=== PATIENT | female | born 1995 | race Caucasian/White ===

== ENCOUNTER 2018-03-12 09:30 | Outpatient (REF) | payer OTHER, SELFPAY ==
[2018-03-12 19:00] LABS: Abs Immature Grans 0.19 k/cumm (0.0-0.09); Absolute Basophil Count 0.06 k/cumm (0.0-0.2); Basophils % 0.5; Eosinophils % 1.7; HCT 43.3 % (36.0-46.0); HGB 14.4 g/dL (12.0-15.5); Immature Grans % 1.5; Lymphocytes % 16.5; Mean Corp. HGB Concentration 33.3 g/dL (32.0-36.0); Mean Corpuscular Hemoglobin 30.1 pg (27.0-33.0); Mean Corpuscular Volume 90.6 fL (80-95); Mean Platelet Volume 10.5 fL (8.0-11.0); Monocytes % 8.3; Neutrophils % 71.5; Platelet Count 315 x1000/uL (130-400); RBC 4.78 m/cumm (4.00-5.20); RBC Distribution Width 13.1 % (11.7-14.6)
[2018-03-12 19:05] LABS: Absolute Eosinophil Count 0.22 k/cumm (0.0-0.7); Absolute Monocyte Count 1.05 k/cumm (0.11-0.7); Absolute Neutrophil Count 9.08 k/cumm (1.2-6.7)
[2018-03-12 19:25] LABS: ALT 38 U/L (12-78); AST 28 U/L (15-37); Albumin 3.8 g/dL (3.4-5.0); Alkaline Phosphatase 97 U/L (46-116); Anion Gap 9.7 mmol/L (3-11); BUN 17 mg/dL (7-18); Bilirubin, Total 0.5 mg/dL (0.2-1.0); CO2 24.3 mmol/L (21.0-32.0); CREATININE 0.67 mg/dL (0.55-1.02); Chloride 104 mmol/L (98-107); Cholesterol 126 mg/dL (50-200); Glucose 85 mg/dL (70-100); HDL Cholesterol 43 mg/dL (40-60); LDL CHOLESTEROL 71 mg/dL (<100); Potassium 4.5 mmol/L (3.5-5.1); Sodium 138 mmol/L (136-145); Total Protein 7.1 g/dL (6.4-8.2); Triglyceride 54 mg/dL (30-150)
[2018-03-12 20:17] LABS: Hemoglobin A1C 5.6 % (4.5-6.2)
== END 2018-03-12 09:50 ==
LOC: NCHCN 09:30
PROVIDERS: PCP Pediatrics; Visit Provider Physician Assistant Medical
DX: D72.829 Elevated white blood cell count, unspecified (principal); Z00.00 Encounter for general adult medical examination without abnormal findings
CPT/HCPCS: 80053; 80061; 83721; 83036; 85025

== ENCOUNTER 2018-06-09 21:26 | Outpatient (REF) | payer OTHER, SELFPAY | END 2018-06-09 21:46 | LOC: NCHCN 21:26 | PROVIDERS: PCP Pediatrics; Visit Provider Physician Assistant Medical | DX: R39.89 Other symptoms and signs involving the genitourinary system (principal) | CPT/HCPCS: 87086 ==

== ENCOUNTER 2018-10-13 15:40 | Outpatient (REF) | payer OTHER, SELFPAY | END 2018-10-13 16:00 | LOC: NCHCN 15:40 | PROVIDERS: PCP Nurse Practitioner Family; Visit Provider Nurse Practitioner Family | DX: J02.9 Acute pharyngitis, unspecified (principal) | CPT/HCPCS: 87070 ==

== ENCOUNTER 2020-03-02 20:22 | Outpatient (REF) | payer OTHER, SELFPAY ==
[2020-03-02 20:28] LABS: Anion Gap 8.2 mmol/L (3-11); BUN 14 mg/dL (7-18); CO2 26.8 mmol/L (21.0-32.0); CREATININE 0.82 mg/dL (0.55-1.02); Calcium 9.6 mg/dL (8.5-10.1); Chloride 102 mmol/L (98-107); Glucose 80 mg/dL (74-106); Potassium 4.6 mmol/L (3.5-5.1); Sodium 137 mmol/L (136-145)
== END 2020-03-02 20:42 ==
LOC: NCHCN 20:22
PROVIDERS: PCP Nurse Practitioner Family; Visit Provider Physician Assistant Medical
DX: R10.9 Unspecified abdominal pain (principal); E28.2 Polycystic ovarian syndrome
CPT/HCPCS: 80048; 87086

== ENCOUNTER 2020-08-31 12:51 | Outpatient (REF) | payer OTHER, SELFPAY ==
[2020-08-31 19:39] LABS: Abs Immature Grans 0.13 10^3/uL (0.0-0.06); Absolute Basophil Count 0.09 10^3/uL (0.0-0.2); Absolute Eosinophil Count 0.27 10^3/uL (0.0-0.7); Absolute Lymphocyte Count 2.87 10^3/uL (1.2-3.4); Absolute Monocyte Count 0.68 10^3/uL (0.1-0.8); Absolute Neutrophil Count 6.37 10^3/uL (1.2-6.7); Basophils % 0.9; Eosinophils % 2.6; HCT 46.1 % (36.0-46.0); HGB 14.5 g/dL (11.2-15.7); Immature Grans % 1.2; Lymphocytes % 27.6; MCH 29.1 pg (27.0-33.0); MCHC 31.5 % (32.0-36.0); MCV 92.6 fL (80-95); MPV 10.4 fL (8.0-11.0); Monocytes % 6.5; Neutrophils % 61.2; Nucleated RBC 0 %; Platelet Count 354 10^3/uL (130-400); RBC 4.98 10^6/uL (3.93-5.22); RDW 12.4 % (11.7-14.6); RDW-SD 42.3 fL; WBC 10.41 10^3/uL (4.4-10.8)
[2020-08-31 20:13] LABS: Hemoglobin A1C 5.3 % (<5.7)
[2020-08-31 20:24] LABS: ALT 102 U/L (14-59); AST 48 U/L (15-37); Alkaline Phosphatase 76 U/L (46-116); Anion Gap 11.5 mmol/L (3-11); BUN 8 mg/dL (7-18); Bilirubin, Total 0.4 mg/dL (0.2-1.0); CO2 23.5 mmol/L (21.0-32.0); CREATININE 0.7 mg/dL (0.55-1.02); Chloride 105 mmol/L (98-107); Glucose 86 mg/dL (74-106); Potassium 4.4 mmol/L (3.5-5.1); Sodium 140 mmol/L (136-145); TSH (W/Ref FT4) 1.23 uIU/mL (0.36-3.74); Total Protein 7.4 g/dL (6.4-8.2)
[2020-09-03 10:53] LABS: Lyme Ab w Rflx to Lyme Confirm Negative (Negative)
[2020-09-04 11:29] LABS: Hepatitis A Antibody IgM Negative (Negative); Hepatitis B Core Antibody Negative (Negative); Hepatitis B surface Ag Negative (Negative); Hepatitis C Ab w Rflx HCV PCR Negative (Negative)
[2020-09-04 12:42] LABS: Anaplasma phagocytophilum Negative (Negative); B. miyamotoi PCR Negative (Negative); Babesia divergens/MO-1 Negative (Negative); Babesia duncani Negative (Negative); Babesia microti Negative (Negative); Ehrlichia chaffeensis Negative (Negative); Ehrlichia ewingii/canis Negative (Negative); Ehrlichia muris eauclairensis Negative (Negative)
== END 2020-08-31 12:52 | disposition home or self-care (01) ==
LOC: NCHCN 12:51
PROVIDERS: PCP Nurse Practitioner Family; Visit Provider Physician Assistant Medical
DX: R22.1 Localized swelling, mass and lump, neck (principal); R53.83 Other fatigue; M79.605 Pain in left leg; R79.89 Other specified abnormal findings of blood chemistry
CPT/HCPCS: 80053; 86704; 86709; 86803; 87340; 87798; 83036; 84443; 85025; 86618

== ENCOUNTER → 2020-09-20 02:36 | Outpatient (CLI) | payer OTHER, SELFPAY ==
--- NOTE | 2020-09-20 | DI.MRI_ITS ---
Exam(s) MR ABDOMEN WO/W EXAM: MR ABDOMEN WO/W CLINICAL HISTORY: ELEVATED LFT'S,R79.89,F/U RT HEPATIC LESION ON MRI 05/11/15 TECHNIQUE: Multiplanar multisequence MRA of the Abdomen was performed. CONTRAST MATERIAL: IV Contrast: mL of Dotarem contrast administered. COMPARISON: CT RENAL COLIC WO CONTRAST from 11/11/2013 CT RENAL COLIC WO CONTRAST from 11/11/2013 CT RENAL COLIC WO CONTRAST from 11/11/2013 US RENAL ULTRASOUND(P) {[id number]} from 12/07/2013 US RENAL ULTRASOUND(P) {[id number]} from 12/07/2013 FINDINGS: Exam is limited by patient motion. Liver: Circumscribed mass posterosuperior right lobe of the liver is slightly hypo intense related t o the remaining liver. It measures 3 cm in greatest dimension, unchanged from the previous exam. No new liver lesions. Liver is enlarged at 19 cm in length. There is diffuse hepatic steatosis. Pancreas: Unremarkable. Gallbladderand Bile Ducts: Unremarkable. Adrenals: Unremarkable. Kidneys: Unremarkable. Spleen: Unremarkable. Aorta: Unremarkable. Soft Tissues: Unremarkable. Bone: Unremarkable. Lymph Nodes: Unremarkable. IMPRESSION: Stable circumscribed mass in the right lobe of the liver. No new abnormalities. Enlarged fatty liver. DATA REPOSITORY:
[2020-09-20] MEDS: Gadoterate meglumine 20 ML VIAL IVP (14:30)
== END ==
PROVIDERS: PCP Physician Assistant Medical; Visit Provider Physician Assistant Medical
DX: K76.0 Fatty (change of) liver, not elsewhere classified (principal); R79.89 Other specified abnormal findings of blood chemistry
CPT/HCPCS: 74183

== ENCOUNTER 2020-10-08 01:44 | Outpatient (CLI) | payer OTHER, SELFPAY ==
--- NOTE | 2020-10-08 09:05 | DI.RAD_ITS ---
Exam(s) XR KNEE LT 3V AP,LAT,JUAN EXAM: XR KNEE LT 3V AP,LAT,JUAN CLINICAL HISTORY: LT KNEE PAIN, M25.562. TECHNIQUE: 2D digital imaging was performed. COMPARISON: No exams were available for comparison no evidence of fracture nor obvious joint effusio n. No degenerative changes. Bone density normal. No osseous lesions. No osteochondral defects. FINDINGS: No significant radiograph findings in the left knee. IMPRESSION: DATA REPOSITORY: RADIATION DOSE DELIVERED:
== END 2020-10-08 02:04 ==
PROVIDERS: PCP Physician Assistant Medical; Visit Provider Physician Assistant Medical
DX: M25.562 Pain in left knee (principal)
CPT/HCPCS: 73562

== ENCOUNTER 2020-10-26 17:08 | Emergency (ER) | payer OTHER, SELFPAY ==
[2020-10-26 17:17] VITALS: BP 145/109; PULSE 127; RESP 18; TEMP 36.7; O2SAT 97
--- NOTE | 2020-10-26 17:30 | DI.CT_ITS ---
Exam(s) CT ABDOMEN PELVIS W EXAM: CT ABDOMEN PELVIS W CLINICAL HISTORY: N/V/D abdominal pain TECHNIQUE: Imaging Protocol: Axial computed tomography images with coronal and sagittal reformatted images were created and reviewed CONTRAST MATERIAL: Intravenous: Omnipaque 350 Contrast volume:100 mL Oral: No COMPARISON: CT RENAL COLIC WO CONTRAST from 11/11/2013 CT RENAL COLIC WO CONTRAST from 11/11/2013 MR MR ABDOMEN WO/W from 09/20/2020 MR MR ABDOMEN WO/W from 09/20/2020 FINDINGS: ABDOMEN: Lung Bases: Normal where visualized. Liver: There is diffuse decreased attenuation of the liver consistent with fatty infiltration. There has been no change in size of the mass in the posterior segment of the right lobe of the liver when compared to the MRI examination is from 10/27/2016 and 09/20/[address] scan from 11/11/2013. Portal, Superior Mesenteric, and Splenic Veins: Unremarkable. Gallbladder and Biliary Tract: No radiodense calculus or dilation. Pancreas: Normal density, no abnormal calcifications or inflammatory process. Spleen: Normal. Adrenals: No masses seen. Kidneys: Normal size, contour and axis. There is a 3 mm nonobstructing stone in the midpole of the le ft kidney. No masses seen. Abdominal Aorta: Abdominal portion non-dilated. Bowel: No obstruction or bowel wall thickening. The appendix measures 7 cm in diameter but contains a ir. No Tiesha appendiceal inflammatory changes are noted. Peritoneal Cavity: No ascites, collection or mesenteric inflammatory response. No free air. Lymph Nodes: Within normal limits. Bones: Within normal limits for the patient's age. Soft Tissues: Unremarkable. PELVIS: Bladder: Symmetric distention, no gross wall thickening. Reproductive Organs: There is an IUD in good position within the uterus. Lymph Nodes: Within normal limits. Bones: Within normal limits for the patient's age. IMPRESSION: 1. No acute abdominal pelvic process. 2. Stable hepatic lesion. RADIATION DOSE DELIVERED: 1,462.05mGy.cm Total DLP DATA REPOSITORY: All CT scans at this facility are submitted to the National Radiology Data Registry (NRDR) Dose Index Registry (DIR) with the [employer] ([employer]). RADIATION OPTIMIZATION: All CT scans at this facility use at least one of these dose optimization te chniques: automated exposure control; mA and/or kV adjustment per patient size (includes targeted exa ms where dose is matched to clinical indication); or iterative reconstruction.
--- NOTE | 2020-10-26 17:34 | W.ED.GENAD ---
Discharge Plan Disposition Patient Disposition: HOME Condition: Stable Discharge Details Clinical Impression: Nausea vomiting and diarrhea, Abdominal pain Primary Care Provider: Keira Greene ED Provider: Shirley Lam Home Meds and New Rx's Prescriptions: New ondansetron 4 mg tablet,disintegrating 4 mg PO Q8H PRN5 Days Qty: 15 RF: 0 No Action magnesium oxide 400 MG tablet 400 mg PO DAILY RF: 0 norethindrone (contraceptive) [Nor-Q-D] 0.35 MG tablet 0.35 mg PO DAILY Qty: 3 RF: 3 fluoxetine 20 mg capsule RF: 0 spironolactone 50 mg tablet RF: 0 Discharge Instructions Instructions: Acute Nausea and Vomiting (ED), Abdominal Pain (ED) Additional Instructions: Please drink Gatorade or similar electrolyte drink while having diarrhea. Take nausea medications as directed. If your stool sample comes back abnormal we will give you a call. Please return to the emergency room for any worsening abdominal pain, fever unable to keep medications down or any concerns. Follow up with primary care provider in 3-5 days. Return to ED sooner if any worsening or concerns. Increase oral fluids. Stand Alone Forms: Work Release Referrals: Keira Greene PA [Primary Care Provider] - 5 days Medical Decision Making 25-year-old female presents to the ER with chief complaint of nausea vomiting diarrhea which began at 1 PM today. Associated with headache and upper and right lower quadrant abdominal pain. Patient states she is unable to keep anything down. She also reports contacts at home with similar symptoms which have since resolved. She is vaccinated for Covid. She does endorse chills denies fever. She has no surgical history of abdominal surgeries. Medical history includes childhood asthma and migraines. She also reports decreased urine output she is unsure when she last urinated. Labs, urinalysis, Covid CT abdomen pelvis with contrast ordered. Differential diagnosis includes but not limited to gastroenteritis, appendicitis, Cholecystitis, SBO. Patient has received a total of 8 mg of Zofran 12 and half of Phenergan ,50 mcg of fentanyl 1 L normal saline and normal saline 150 an hour. Patient was incontinent of watery diarrhea. Labs show white blood cell count of 19.16, RBCs 5.33, absolute neutrophils 16.77, lymphocytes 1.05, sodium potassium chloride BUN/creatinine all within normal limits. Glucose 109, liver enzymes are slightly elevated with an AST of 49 ALT 107 alk phos is 83. Urinalysis shows 40 ketones. No evidence of urinary tract infection no leukocytes no nitrites. Covid is negative. CT results of abdomen pelvis with contrast noted below. MR ABDOMEN WO/W 09/20/2020 2:10 PM FINDINGS: Liver: Diffuse hypoattenuation in the liver compatible with steatosis. Gallbladder and bile ducts: Normal. No calcified stones. No ductal dilation. Pancreas: Normal. No ductal dilation. Spleen: Normal. No splenomegaly. Adrenal glands: Normal. No mass. Kidneys and ureters: A 3 mm nonobstructing stone is seen in the left kidney. Stomach and bowel: Unremarkable. No obstruction. No mucosal thickening. Appendix: No evidence of appendicitis. Intraperitoneal space: Unremarkable. No free air. No significant fluid collection. Vasculature: Unremarkable. No abdominal aortic aneurysm. Lymph nodes: Unremarkable. No enlarged lymph nodes. Urinary bladder: Unremarkable as visualized. Reproductive: IUD noted. Bones/joints: Unremarkable. No acute fracture. Soft tissues: Unremarkable. Other findings: A lesion in subsegment 7 is better characterized on recent MR. IMPRESSION: No acute intra-abdominal pathology Stool sample obtained by staff readiness officer and sent to the lab for bacterial bacterial pathogen screen occult blood and C. difficile. Discussed CT results with patient who verbalized understanding. I did discuss strict return instructions with patient. Plan is to discharge patient with nausea medication instructed on rehydration techniques by oral electrolyte fluids and follow-up with PCP. At this time stool studies are pending. HPI General Mode of arrival: ambulatory. Date/Time Provider Initiated Documentation: 10/26/20 17:08. Limitations to Documentation: no limitations. Information obtained by: patient. HPI Narrative: 25-year-old female presents to the ER with chief complaint of nausea vomiting diarrhea which began at 1 PM today. Associated with headache and upper and right lower quadrant abdominal pain. Patient states she is unable to keep anything down. She also reports contacts at home with similar symptoms which have since resolved. She is vaccinated for Covid. She does endorse chills denies fever. She has no surgical history of abdominal surgeries. Medical history includes childhood asthma and migraines. She also reports decreased urine output she is unsure when she last urinated. Related Data Home Medications Medication Instructions Recorded Confirmed magnesium oxide 400 mg PO DAILY 05/10/15 norethindrone (contraceptive) 0.35 mg PO DAILY #3 pack 05/24/15 10/26/20 [Nor-Q-D] fluoxetine mg 10/26/20 10/26/20 ondansetron 4 mg PO Q8H PRN 5 Days #15 tab 10/26/20 spironolactone 10/26/20 10/26/20 Previous Rx's Medication Instructions Recorded ondansetron 4 mg PO Q8H PRN 5 Days #15 tab 10/26/20 Allergies Allergy/AdvReac Type Severity Reaction Status Date / Time No Known Allergies Allergy Unverified 10/26/20 17:21 General Stated Complaint: Nausea/Vomit/Diar MONTSE: 3 Review of Systems All systems reviewed & are unremarkable except as noted in HPI and below Constitutional Constitutional: Reports headache(s) ENT Ears, Nose, Mouth, and Throat: Reports headache(s) Gastrointestinal Gastrointestinal: Reports abdominal pain, Reports diarrhea, Reports nausea and Reports vomiting Genitourinary Genitourinary: Reports other (decreased urine output) Neurologic Neurologic: Reports headache(s) [facility] Medical History Childhood asthma Migraine Family History Father Diabetes Hyperlipidemia Social History Smoking/Tobacco Use Status: Never Smoking risk assessment performed?: Yes Alcohol Intake: current Alcohol Intake frequency: holidays/special occasions only Drug use: Never Substance use type: does not use Exam Narrative Exam Narrative: Constitutional: Alert and oriented x3. Appears stated age. Obese body habitus. Head: Normocephalic, no trauma. Eyes: Pupils PERRLA, Red reflex noted, EOM's intact. Eyelids symmetrical without lesions, discharge, or swelling. ENT: Bilateral TM's WNL, External ear normal to inspection, no mastoid TTP, swelling, or erythema, Nasal turbinates WNL, no nasal discharge. Normal dentition, Posterior pharynx WNL, no exudate. Chest: Tachycardic, normal S1, S2, distal pulses intact. Resp: Lungs clear to auscultation bilaterally, no wheezes, rales, or rhonchi. Abdomen: Soft, nondistended tenderness with palpation right upper quadrant right lower quadrant. No palpable masses. Musculoskeletal: Normal gait, 5/5 strength to all four extremities. Skin: No suspicious rashes or lesions. Capillary refill less than 2 sec. Neurologic: Cranial nerves II-XII intact. Alert and oriented x 3. DTR's intact. Hematologic/Lymphatic: No ecchymosis, no lymphadenopathy. Course Vital Signs Vital signs: Vital Signs Temperature 36.7 C 10/26/20 17:17 Pulse 127 H 10/26/20 17:17 Respiratory Rate 18 10/26/20 17:17 Blood Pressure 145/109 H 10/26/20 17:17 Pulse Oximetry 97 10/26/20 17:17 Temperature 36.7 C 10/26/20 17:17 Temperature Source Skin 10/26/20 17:17 Pulse 127 H 10/26/20 17:17 Respiratory Rate 18 10/26/20 17:17 Respiratory Effort 10/26/20 17:20 Blood Pressure 145/109 H 10/26/20 17:17 Blood Pressure Position Supine 10/26/20 17:17 Pulse Oximetry 97 10/26/20 17:17 Oxygen Delivery Method Room Air 10/26/20 17:17 Oxygen Flow Rate 0 10/26/20 17:17 Pain Level 2 10/26/20 17:17
[2020-10-26 17:48] LABS: Abs Immature Grans 0.16 10^3/uL (0.0-0.06); Absolute Eosinophil Count 0.19 10^3/uL (0.0-0.7); Absolute Lymphocyte Count 1.05 10^3/uL (1.2-3.4); Basophils % 0.5; HCT 48.2 % (36.0-46.0); HGB 15.5 g/dL (11.2-15.7); Immature Grans % 0.8; Lymphocytes % 5.5; MCH 29.1 pg (27.0-33.0); MCHC 32.2 % (32.0-36.0); MCV 90.4 fL (80-95); MPV 9.8 fL (8.0-11.0); Monocytes % 4.7; Neutrophils % 87.5; Nucleated RBC 0 %; Platelet Count 356 10^3/uL (130-400); RBC 5.33 10^6/uL (3.93-5.22); RDW 12.4 % (11.7-14.6); RDW-SD 40.4 fL; WBC 19.16 10^3/uL (4.4-10.8)
[2020-10-26 17:49] LABS: Absolute Neutrophil Count 16.77 10^3/uL (1.2-6.7)
[2020-10-26 17:53] LABS: Bilirubin Negative (Negative); Blood Negative (Negative); Clarity Cloudy (Clear); Glucose Negative (Negative); Ketones 40 mg/dL (Negative); Leukocyte Esterase Negative (Negative); Nitrite Negative (Negative); Specific Gravity >= 1.030 (1.005-1.025); Urobilinogen 0.2 EU/dL (Up TO 0.2); pH 6.5 (5-8)
[2020-10-26] MEDS: Normal Saline 1,000 ML 1000 ML IV (17:54)
[2020-10-26] MEDS: Ondansetron 4 MG/2 ML VIAL IVP ×2 (17:55→20:15)
[2020-10-26 17:58] LABS: Source Nasal/Nares
[2020-10-26 18:00] LABS: Magnesium 2.1 mg/dL (1.8-2.4)
[2020-10-26 18:06] LABS: ALT 107 U/L (14-59); AST 49 U/L (15-37); Albumin 4.5 g/dL (3.4-5.0); Alkaline Phosphatase 83 U/L (46-116); Anion Gap 10.1 mmol/L (3-11); BUN 12 mg/dL (7-18); Bilirubin, Total 0.7 mg/dL (0.2-1.0); CO2 25.9 mmol/L (21.0-32.0); CREATININE 0.7 mg/dL (0.55-1.02); Calcium 9.2 mg/dL (8.5-10.1); Chloride 101 mmol/L (98-107); Glucose 109 mg/dL (74-106); Potassium 3.9 mmol/L (3.5-5.1); Sodium 137 mmol/L (136-145); Total Protein 8.6 g/dL (6.4-8.2)
[2020-10-26 18:10] LABS: Epithelial Cells Many HPF (Negative); RBC 0-2 HPF (0-2)
[2020-10-26 18:11] LABS: Bacteria Many HPF (Negative); C & S Indicated? No/Sq. Contamination; Casts Negative LPF (Negative); Crystals Negative HPF (Negative); Mucus Moderate (Negative)
[2020-10-26] MEDS: Omnipaque 350 MG/ML 100 ML BTL IJ (18:45)
[2020-10-26 18:48] LABS: COVID-19 PCR Negative (Negative)
[2020-10-26 19:09] VITALS: BP 137/85; PULSE 103; RESP 19; TEMP 37.6; O2SAT 98
[2020-10-26] MEDS: fentaNYL 100 MCG/2 ML VIAL 50 MCG IVP (20:31)
--- NOTE | 2020-10-26 20:31 | DI.VRAD_ITS ---
PROCEDURE INFORMATION: Exam: CT Abdomen And Pelvis With Contrast Exam date and time: 10/26/2020 5:41 PM Age: 25 years old Clinical indication: Nausea and vomiting and other: Diarrhea; Patient HX: N/v/d and abdominal pain TECHNIQUE: Imaging protocol: Computed tomography of the abdomen and pelvis with contrast. COMPARISON: MR ABDOMEN WO/W 09/20/2020 2:10 PM FINDINGS: Liver: Diffuse hypoattenuation in the liver compatible with steatosis. Gallbladder and bile ducts: Normal. No calcified stones. No ductal dilation. Pancreas: Normal. No ductal dilation. Spleen: Normal. No splenomegaly. Adrenal glands: Normal. No mass. Kidneys and ureters: A 3 mm nonobstructing stone is seen in the left kidney. Stomach and bowel: Unremarkable. No obstruction. No mucosal thickening. Appendix: No evidence of appendicitis. Intraperitoneal space: Unremarkable. No free air. No significant fluid collection. Vasculature: Unremarkable. No abdominal aortic aneurysm. Lymph nodes: Unremarkable. No enlarged lymph nodes. Urinary bladder: Unremarkable as visualized. Reproductive: IUD noted. Bones/joints: Unremarkable. No acute fracture. Soft tissues: Unremarkable. Other findings: A lesion in subsegment 7 is better characterized on recent MR. IMPRESSION: No acute intra-abdominal pathology Dictated and Authenticated by: Joel Maya MD. Ordering:TIAGO Watson MD
[2020-10-26] MEDS: Normal Saline 1,000 ML 150 ML IV (20:32)
[2020-10-26 20:39] VITALS: BP 150/97; PULSE 110; RESP 18; TEMP 36.3; O2SAT 96
[2020-10-26 20:59] LABS: Lipase 141 U/L (73-393)
[2020-10-26] MEDS: Ondansetron O.D.T. 4 MG TABEF, 3 TABS/BTL PO (21:17)
[2020-10-26 22:38] LABS: C Diff PCR Negative (Negative)
[2020-10-28 19:47] LABS: Campylobacter PCR Negative (Negative); Salmonella PCR Negative (Negative); Shiga Toxin PCR Negative (Negative); Shigella/Enteroinvasive Ecoli Negative (Negative)
== END 2020-10-26 21:42 | disposition home or self-care (01) ==
PROVIDERS: Emergency Provider Registered Nurse Emergency; PCP Physician Assistant Medical
DX: R11.2 Nausea with vomiting, unspecified (principal); R10.11 Right upper quadrant pain; R10.31 Right lower quadrant pain; R19.5 Other fecal abnormalities; Z20.822 Contact with and (suspected) exposure to COVID-19; Z03.818 Encounter for observation for suspected exposure to other biological agents ruled out
CPT/HCPCS: 36415; 80053; 81025; 83690; 87493; 87505; 87635; 96361; 96365; 96375; 96376; 99285; 74177; 81003; 81015; 82270; 83735; 85025; J2405; J3010; J3490

== ENCOUNTER 2021-01-23 16:21 | Outpatient (REF) | payer OTHER, SELFPAY ==
[2021-01-25 11:22] LABS: COVID-19 RT-PCR UVMMC Result Negative (Negative)
== END 2021-01-23 16:22 | disposition home or self-care (01) ==
LOC: NCHCN 16:21
PROVIDERS: PCP Physician Assistant Medical; Visit Provider Physician Assistant Medical
DX: Z20.822 Contact with and (suspected) exposure to COVID-19 (principal); J06.9 Acute upper respiratory infection, unspecified
CPT/HCPCS: U0003

== ENCOUNTER 2021-01-24 10:01 | Outpatient (CLI) | payer OTHER, SELFPAY ==
--- NOTE | 2021-01-24 10:42 | DI.RAD_ITS ---
Exam(s) XR CHEST 2V PA LATERAL EXAM: XR CHEST 2V PA LATERAL CLINICAL HISTORY: COUGH, RO5. TECHNIQUE: 2D digital imaging was performed. COMPARISON: No exams were available for comparison FINDINGS: Heart size is normal. The mediastinum is not widened. Lungs are clear. No infiltrates nor pleural effusions. IMPRESSION: No acute pulmonary findings. DATA REPOSITORY: RADIATION DOSE DELIVERED:
== END 2021-01-24 10:21 ==
PROVIDERS: PCP Physician Assistant Medical; Visit Provider Physician Assistant Medical
DX: R05.9 Cough, unspecified (principal)
CPT/HCPCS: 71046

== ENCOUNTER 2021-10-25 16:48 | Outpatient (REF) | payer BC, SELFPAY ==
[2021-10-25 15:47] LABS: Hemoglobin A1C 5.2 % (<5.7)
[2021-10-25 15:52] LABS: ALT 86 U/L (14-59); AST 45 U/L (15-37); Albumin 3.9 g/dL (3.4-5.0); Alkaline Phosphatase 70 U/L (46-116); Anion Gap 9.6 mmol/L (3-11); BUN 11 mg/dL (7-18); Bilirubin, Total 0.3 mg/dL (0.2-1.0); CO2 25.4 mmol/L (21.0-32.0); CREATININE 0.7 mg/dL (0.55-1.02); Calcium 8.9 mg/dL (8.5-10.1); Calculated LDL 69 mg/dL (<100); Chloride 104 mmol/L (98-107); Cholesterol 133 mg/dL (<200); Estimated GFR 122.25 (mL/min/1.73m2); Glucose 108 mg/dL (74-106); HDL Cholesterol 40 mg/dL (40-60); Potassium 4.1 mmol/L (3.5-5.1); Sodium 139 mmol/L (136-145); Total Protein 7.8 g/dL (6.4-8.2); Triglyceride 124 mg/dL (<150)
[2021-10-25 16:29] LABS: MCH 28.9 pg (27.0-33.0); MCHC 31.9 % (32.0-36.0); MCV 91 fL (80-95); MPV 10.7 fL (8.0-11.0); Platelet Count 349 10^3/uL (130-400); RBC 5.19 10^6/uL (3.93-5.22); RDW 12.5 % (11.7-14.6); RDW-SD 41.9 fL; WBC 9.54 10^3/uL (4.4-10.8)
== END 2021-10-25 16:49 | disposition home or self-care (01) ==
LOC: NCHCN 16:48
PROVIDERS: PCP Physician Assistant Medical; Visit Provider Physician Assistant Medical
DX: Z78.9 Other specified health status (principal)
CPT/HCPCS: 80053; 80061; 85027; 83036

== ENCOUNTER 2023-05-05 13:15 | Outpatient (REF) | payer MEDICAID, SELFPAY ==
[2023-05-05 15:26] LABS: Abs Immature Grans 0.09 10^3/uL (0.0-0.06); Absolute Basophil Count 0.12 10^3/uL (0.0-0.2); Absolute Eosinophil Count 0.41 10^3/uL (0.0-0.7); Absolute Monocyte Count 0.74 10^3/uL (0.1-0.8); Basophils % 0.9; Eosinophils % 3.2; HCT 48.4 % (36.0-46.0); HGB 15.5 g/dL (11.2-15.7); Immature Grans % 0.7; Lymphocytes % 24.2; MCH 26.6 pg (27.0-33.0); MCV 83 fL (80-95); MPV 9.9 fL (8.0-11.0); Monocytes % 5.8; Neutrophils % 65.2; Platelet Count 461 10^3/uL (130-400); RBC 5.82 10^6/uL (3.93-5.22); RDW 14.7 % (11.7-14.6); RDW-SD 44.4 fL; WBC 12.79 10^3/uL (4.4-10.8)
[2023-05-05 15:27] LABS: Absolute Neutrophil Count 8.34 10^3/uL (1.2-6.7)
[2023-05-05 15:50] LABS: ALT 59 U/L (14-59); AST 31 U/L (15-37); Albumin 4.2 g/dL (3.4-5.0); Alkaline Phosphatase 102 U/L (46-116); Anion Gap 13.6 mmol/L (3-11); BUN 16 mg/dL (7-18); Bilirubin, Total 0.3 mg/dL (0.2-1.0); CO2 24.4 mmol/L (21.0-32.0); CREATININE 0.7 mg/dL (0.55-1.02); Calcium 9.8 mg/dL (8.5-10.1); Calculated LDL 74 mg/dL (<100); Chloride 103 mmol/L (98-107); Cholesterol 175 mg/dL (<200); Estimated GFR 121.49 (mL/min/1.73m2); Glucose 106 mg/dL (74-106); HDL Cholesterol 48 mg/dL (40-60); Potassium 4.2 mmol/L (3.5-5.1); Sodium 141 mmol/L (136-145); Total Protein 8.7 g/dL (6.4-8.2); Triglyceride 265 mg/dL (<150)
[2023-05-05 16:14] LABS: Hemoglobin A1C 5.6 % (<5.7)
== END 2023-05-05 13:16 | disposition home or self-care (01) ==
LOC: NCHCN 13:15
PROVIDERS: PCP Physician Assistant Medical; Visit Provider Physician Assistant Medical
DX: I10 Essential (primary) hypertension (principal); E66.9 Obesity, unspecified
CPT/HCPCS: 80053; 80061; 83036; 85025

== ENCOUNTER → 2023-09-08 01:07 | Outpatient (CLI) | payer MEDICAID, SELFPAY ==
--- NOTE | 2023-09-08 | DI.MRI_ITS ---
Exam(s) MR ABDOMEN WO/W EXAM: MR ABDOMEN WO/W CLINICAL HISTORY: Liver disease, K76.9 TECHNIQUE: Multiplanar multisequence MRI of the Abdomen was performed. CONTRAST MATERIAL: IV Contrast: 20 mL of Dotarem contrast administered. COMPARISON: CT RENAL COLIC WO CONTRAST from 11/11/2013 MR MR ABDOMEN WO/W from 09/20/[address] ABDOMEN PELVIS W from 10/26/[address] Abdomen and Pelvis w/ Contrast from 06/18/2023 FINDINGS: There do appear to be very tiny bilateral pleural effusions. Liver: There is a new 1.1 cm lesion in the anterior segment of the right lobe of the liver. This new lesion does not lose signal between the in and out of phase images. It is hyperintense on the preco ntrast T1 weighted images and remains so on all post-contrast images. This may represent an area of focal fatty sparing. There is diffuse hepatic steatosis. There is again seen a 3.7 cm mass in the p osterior segment of the right lobe of the liver. This is best appreciated on the T2 stir images (ser ies 8001, image 11.). Pancreas: Unremarkable. Gallbladder and Bile Ducts: No evidence of cholelithiasis. No biliary ductal dilatation. Adrenals: Unremarkable. Kidneys: Unremarkable. No evidence of a renal mass or obstruction. Spleen: Unremarkable. Bowel: Unremarkable. Aorta: Unremarkable. Soft Tissues: Unremarkable. Bone: Unremarkable. Lymph Nodes: Unremarkable. IMPRESSION: 1. Stable hepatic lesion in the posterior segment of the right lobe suspicious for FNH. 2. New 1.1 cm lesion in the anterior segment of the right lobe of the liver. The lesion remains hype rintense on the pre and postcontrast T1 weighted images and may represent focal fatty sparing. There is no loss of signal between the in and out of phase images. Follow-up examination in 6 months is r ecommended for re-evaluation. 3. Diffuse fatty infiltration of the liver. DATA REPOSITORY:
[2023-09-08] MEDS: Normal Saline - Diluent 50 ML VIAL 25 ML IJ (09:13)
[2023-09-08] MEDS: Gadoterate meglumine 20 ML VIAL IVP (09:14)
== END ==
PROVIDERS: PCP Physician Assistant Medical; Visit Provider Physician Assistant Medical
DX: K76.9 Liver disease, unspecified (principal)
CPT/HCPCS: 74183

== ENCOUNTER 2024-11-15 20:41 | Outpatient (REF) | payer MEDICAID, SELFPAY | END 2024-11-15 20:42 | disposition home or self-care (01) | LOC: LBN 20:41 | PROVIDERS: PCP Physician Assistant Medical; Visit Provider Nurse Practitioner Family | DX: N76.0 Acute vaginitis (principal) | CPT/HCPCS: 87480; 87510; 87660 ==

== ENCOUNTER 2024-12-13 11:08 | Outpatient (REF) | payer MEDICAID, SELFPAY ==
[2024-12-13 15:22] LABS: HCT 42.4 % (36.0-46.0); HGB 13.7 g/dL (11.2-15.7); MCH 28.4 pg (27.0-33.0); MCHC 32.3 % (32.0-36.0); MCV 88 fL (80-95); MPV 10.4 fL (8.0-11.0); Platelet Count 355 10^3/uL (130-400); RBC 4.82 10^6/uL (3.93-5.22); RDW 12.9 % (11.7-14.6); RDW-SD 42.1 fL; WBC 10.47 10^3/uL (4.4-10.8)
[2024-12-13 15:40] LABS: Hemoglobin A1C 5.5 % (<5.7)
[2024-12-13 15:41] LABS: AST 70 U/L (15-37); Albumin 3.9 g/dL (3.4-5.0); Alkaline Phosphatase 106 U/L (46-116); Anion Gap 8.6 mmol/L (3-11); BUN 10 mg/dL (7-18); Bilirubin, Total 0.3 mg/dL (0.2-1.0); CO2 26.4 mmol/L (21.0-32.0); Calcium 9.1 mg/dL (8.5-10.1); Calculated LDL 90 mg/dL (<100); Chloride 105 mmol/L (98-107); Cholesterol 152 mg/dL (<200); Estimated GFR 124.53 (mL/min/1.73m2); Glucose 127 mg/dL (74-106); HDL Cholesterol 40 mg/dL (>or=50); Potassium 4.2 mmol/L (3.5-5.1); Sodium 140 mmol/L (136-145); TSH 0.85 uIU/mL (0.36-3.74); Total Protein 7.1 g/dL (6.4-8.2); Triglyceride 113 mg/dL (<150)
[2024-12-13 16:11] LABS: ALT 137 U/L (14-59)
== END 2024-12-13 11:09 | disposition home or self-care (01) ==
LOC: NCHCN 11:08
PROVIDERS: PCP Physician Assistant Medical; Visit Provider Physician Assistant Medical
DX: K76.0 Fatty (change of) liver, not elsewhere classified (principal); E66.9 Obesity, unspecified
CPT/HCPCS: 80053; 80061; 85027; 83036; 84443